=== PATIENT | female | born 1955 | race Caucasian/White ===

== ENCOUNTER → 2024-02-16 09:25 | Outpatient (REF) | payer MEDICARE, OTHER, SELFPAY ==
[2024-02-16 12:26] LABS: % Eosinophils 8.1 % (0-6); % Immature Granulocytes 0.3 % (0-0.5); % Lymphocytes 34.1 % (20.5-51.1); % Monocytes 10.5 % (1.7-9.3); Absolute Basophils 0.1 10^3/uL (0-0.2); Absolute Eosinophils 0.6 10^3/uL (0-0.7); Absolute Lymphocytes 2.6 10^3/uL (1.2-3.4); Absolute Monocytes 0.8 10^3/uL (0.1-0.6); Absolute Neutrophils 3.6 10^3/uL (1.4-6.5); Hematocrit 32.1 % (37.0-47.0); Hemoglobin 11.6 g/dL (12.0-16.0); Mean Corp Hgb Conc. 36.1 g/dL (33.0-37.0); Mean Corpuscular Hgb 31.6 pg (27.0-31.0); Mean Corpuscular Volume 87.5 fL (81.0-99.0); Mean Platelet Volume 9.5 fL (7.4-10.4); Nucleated Red Blood Cells % 0 %; Platelet Count 449 10^3/uL (130-400); Red Blood Cell Count 3.67 10^6/uL (4.20-5.40); Red Cell Dist. Width 13.2 % (11.5-14.5); White Blood Cell Count 7.8 10^3/uL (4.8-10.8)
[2024-02-16 13:00] LABS: ALT (SGPT) 24 U/L (0-35); AST (SGOT) 24 U/L (14-36); Albumin 4.7 g/dl (3.5-5.0); Alkaline Phosphatase 44 U/L (38-126); Blood Urea Nitrogen 27 mg/dl (7-17); Calcium 9.9 mg/dl (8.4-10.2); Carbon Dioxide 27 mmol/L (22-30); Chloride 105 mmol/L (98-107); Glucose 107 mg/dl (70-99); HDL Cholesterol 56 mg/dl; LDL Cholesterol, Calculated 89 mg/dl; Potassium 4.3 mmol/L (3.5-5.1); Sodium 140 mmol/L (135-145); Total Bilirubin 0.6 mg/dl (0.2-1.3); Total Cholesterol 167 mg/dl (50-199); Total Protein 7.7 g/dl (6.3-8.2); Triglyceride 113 mg/dl (10-149); Very Low Density Lipoprotein 22 mg/dl (0-30); eGFR > 60.00
[2024-02-16 13:19] LABS: Vitamin D, 25-OH*** 55.5 ng/mL (30-80)
[2024-02-16 14:06] LABS: Glycohemoglobin (HgbA1c) 5.7 % (4.0-5.6)
[2024-02-16 15:47] LABS: Total Thyroxine 4.65 ug/dl (5.5-11.0)
[2024-02-19 01:24] LABS: Total T3 (Sendout) 80 ng/dL (80-200)
== END ==
LOC: HWLAB 09:25
PROVIDERS: ATTENDING PHYSICIAN Surgery; FAMILY PHYSICIAN Family Medicine
DX: E05.90 Thyrotoxicosis, unspecified without thyrotoxic crisis or storm (principal); Z00.00 Encounter for general adult medical examination without abnormal findings; R73.01 Impaired fasting glucose; E78.2 Mixed hyperlipidemia; M85.89 Other specified disorders of bone density and structure, multiple sites; I10 Essential (primary) hypertension
CPT/HCPCS: 36415; 80053; 80061; 82306; 83036; 84436; 84443; 84480; 85025

== ENCOUNTER → 2024-03-22 09:26 | Outpatient (REF) | payer MEDICARE, OTHER, SELFPAY ==
[2024-03-22 14:17] LABS: Total Thyroxine 7.72 ug/dl (5.5-11.0)
[2024-03-22 14:31] LABS: TSH 5.08 uIU/ml (0.47-4.68)
[2024-03-24 22:32] LABS: Total T3 (Sendout) 99 ng/dL (80-200)
== END ==
LOC: HWLAB 09:26
PROVIDERS: ATTENDING PHYSICIAN Surgery; FAMILY PHYSICIAN Family Medicine
DX: E04.1 Nontoxic single thyroid nodule (principal)
CPT/HCPCS: 36415; 84436; 84443; 84480

== ENCOUNTER → 2024-11-02 09:30 | Outpatient (REF) | payer MEDICARE, OTHER, SELFPAY | LOC: HWWDC 09:30 | PROVIDERS: ATTENDING PHYSICIAN Obstetrics & Gynecology; FAMILY PHYSICIAN Family Medicine | DX: Z78.0 Asymptomatic menopausal state (principal); Z12.31 Encounter for screening mammogram for malignant neoplasm of breast | CPT/HCPCS: 77063; 77067; 77080 ==

== ENCOUNTER → 2024-12-04 08:45 | Outpatient (REF) | payer MEDICARE, OTHER, SELFPAY | LOC: MRI 3T 08:45 | PROVIDERS: ATTENDING PHYSICIAN Emergency Medicine | DX: I77.6 Arteritis, unspecified (principal) | CPT/HCPCS: 70544 ==

== ENCOUNTER 2024-12-08 07:46 | Day surgery (SDC) | payer MEDICARE, OTHER, SELFPAY ==
[2024-12-08] VITALS (9 sets, daily range): BP systolic 103–130; BP diastolic 65–75; BMI 28.2
[2024-12-08 08:37] LABS: Hematocrit 39.7 % (37.0-47.0); Hemoglobin 13.5 g/dL (12.0-16.0); Mean Corpuscular Hgb 32.4 pg (27.0-31.0); Mean Corpuscular Volume 95.2 fL (81.0-99.0); Mean Platelet Volume 8.8 fL (7.4-10.4); Platelet Count 396 10^3/uL (130-400); Red Blood Cell Count 4.17 10^6/uL (4.20-5.40); Red Cell Dist. Width 14.4 % (11.5-14.5)
[2024-12-08] MEDS: BACTROBAN NASAL 1 GRAM NASAL (08:43)
[2024-12-08] MEDS: PERIDEX 0.12% ORAL RINSE 15 ML PO (08:43)
[2024-12-08] MEDS: NSS 500 IV (08:44)
[2024-12-08 08:45] LABS: INR 0.89; PT 12.4 Sec (11.4-14.6)
[2024-12-08 08:46] LABS: APTT 25.4 Sec (23.4-35.0)
--- NOTE | 2024-12-08 08:50 | W.SUR.PREOP ---
Pre-Operative Surgical Note
-
I have examined this patient prior to the performance of the scheduled procedure.
The patient's condition is unchanged from the time of the current History and
Physical and the patient is able to undergo the scheduled procedure.
--- NOTE | 2024-12-08 08:57 | OR.RPT ---
Addendum entered and electronically signed by Kyle Pereyra MD 12/08/24 09:40:
BELOW NOTE ENTERED ERRONEOUSLY. THE BELOW NOTE IS NOT FOR THIS PATIENT. WRONG ENTRY.
Original Note:
Operative Report
Operative Report
PROCEDURE DATE: 12/08/2024
Preoperative diagnosis: Debilitating left lower extremity claudication, possible early rest pain.
Postoperative diagnosis: Same
Procedure:
1. Duplex assisted right common femoral artery cannulation.
2. Aortogram and pelvic angiogram.
3. Left lower extremity arteriogram with third order vessel catheterization of left popliteal artery via right common femoral artery puncture.
4. Balloon angioplasty and stent placement left distal superficial femoral artery with AppLovin Zilver PTX 6 mm x 80 mm drug-eluting stent.
5. Right femoral angiogram.
6. Supervision and interpretation.
Surgeon: Roddy
Mds Nurse: None
Complications: None
Anesthesia: Local, sedation
Fluoroscopy:
8.0 min
30 mGy
5.94 Gy.cm2
Indications for procedure:
Debilitating left calf claudication with potential early ischemic rest pain type symptoms. Risk/benefits/alternatives of angiography were discussed. Patient understood all wished to proceed.
Description of procedure:
Patient was identified, brought to the operating room. Placed on the table in the supine position. After the adequate administration of anesthesia, the patient was prepped and draped in the standard surgical fashion. A standard preoperative
timeout was undertaken and everybody was in agreement with the plan.
The right common femoral artery was accessed with a micropuncture kit under direct duplex ultrasound guidance. A 5 American sheath was then advanced over a 0.035 inch wire, and a garcia's hook catheter was advanced into the abdominal aorta.
Aortogram and pelvic angiogram was obtained. Findings as follows:
The infrarenal abdominal aorta and bilateral common and external iliac arteries were patent with severe eccentric calcified plaque diffusely, but no hemodynamically significant stenosis
Using a floppy angled hydrophilic wire, the left common femoral artery was cannulated and the catheter was advanced. Left lower extremity arteriogram was obtained. Findings as follows:
Common femoral artery: Patent with luminal irregularities and mild to moderate calcified plaque, but no significant stenosis.
Profunda femoris artery: Patent with no significant stenosis.
Superficial femoral artery: Moderate eccentric calcified plaque, at the origin there was a opacified plaque, but did not appear to result in significant flow limitation. Luminal irregularities throughout the SFA with mild stenosis in the
midsegment. Then at the distal SFA there was a focal area of severe stenosis with luminal irregularity. No occlusion noted.
Popliteal artery: Patent with mild luminal irregularities but no significant stenosis.
Anterior tibial artery: Patent for approximately 2 cm and then occluded.
Tibial peroneal trunk: Patent with luminal irregularity mild noted. At the bifurcation of the tibioperoneal trunk there is a mild stenosis.
Peroneal artery: Patent with no significant stenosis in the proximal 4 to 5 cm. Beyond here the artery became diffusely small with luminal irregularities, appeared to be chronically calcified. Collateralization at the level of the ankle with Y
collaterals, but relatively poor filling into the foot.
Posterior tibial artery: Patent with diffuse diminutive stature, but no focal stenosis identified. Patent flow through to the ankle. The plantar's did not feel well due to small vessel disease. There was plaque noted throughout the posterior
tibial artery.
At this point, I selectively cannulated the superficial femoral artery and then exchanged for a Storq wire and an up and over 6 American sheath. The patient was given 5000 units of intravenous heparin. Using floppy angled hydrophilic wire and a CXI
catheter under roadmap assisted guidance I was able to traverse through the area of severe distal SFA stenosis, and then advance my catheter and exchanged for a Storq wire. Next I electively stented that segment using a 6 mm x 80 mm Zilver PTX
(AppLovin) drug coated self-expanding stent. This was post angioplastied with a 5 mm balloon. Completion angiogram demonstrated excellent result. There was some wire hold-up that I kept noting in the above-knee popliteal artery. Therefore I
performed a magnified image and it demonstrated no significant stenosis. Using a floppy wire and a CXI catheter I was able to easily traverse the area and passed the catheter without difficulty. Therefore I felt there was no significant stenosis.
At this point over the Storq wire I withdrew my sheath to the right distal external iliac artery. Right femoral angiogram demonstrated good puncture in the right common femoral artery. There was moderate right common femoral artery calcified
plaque with likely mild to moderate stenosis, but the origin of the SFA and proximal SFA had a heavy bulky calcified plaque and stenosis. At this point, the wires and catheters were withdrawn after exchanging for a short 6 American sheath. The
patient will be transferred to the recovery room in stable condition where the sheath will be withdrawn. Protamine was given reverse the heparin. Upon completion the patient had a palpable left popliteal pulse.
The patient tolerated procedure well.
[2024-12-08 09:12] LABS: Blood Urea Nitrogen 21 mg/dl (7-17); Calcium 9.4 mg/dl (8.4-10.2); Carbon Dioxide 24 mmol/L (22-30); Chloride 106 mmol/L (98-107); Estimated Creatinine Clearance 54 ml/min; Glucose 82 mg/dl (70-99); Potassium 4.4 mmol/L (3.5-5.1); Sodium 141 mmol/L (135-145); eGFR > 60.00
--- NOTE | 2024-12-08 10:22 | W.SUR.POST ---
Surgical Immediate Post Op
Note
Pre Op Diagnosis: Temporal arteritis
Post Op Diagnosis: Same
Procedure Performed: Bilateral temporal artery biopsy
Primary Surgeon: Roddy
Assist: Arias GARNICA
Anesthesia: Local and sedation
Estimated Blood Loss: 2 cc
Fluids: See anesthesia flowsheet
Drains/Shunts: None
Specimens/Cultures: Temporal arteries
Doppler/Duplex/Angio (Y/N): Yes
Complications: None
Operative Findings: Successful biopsies
--- NOTE | 2024-12-08 10:47 | OR.RPT ---
Operative Report
Operative Report
PROCEDURE DATE: 12/08/2024
Preoperative diagnosis: Temporal arteritis
Postoperative diagnosis: Same
Procedure: Bilateral superficial temporal artery biopsy.
Surgeon: Roddy
Supervising Architect: Arias, required for all aspects of procedure including assistance with traction/count traction, assistance with closure.
Complications: None
Anesthesia: Local, sedation
Indications for procedure:
Concern for temporal arteritis. Bilateral headaches in the temporal region. Referred by her primary care team for temporal artery biopsy given their concern for the diagnosis. Risk/benefits/alternatives of temporal artery biopsy were discussed.
Patient understood all wished to proceed.
Description of procedure:
Patient was identified brought to the operating room placed on the table in supine position. After the adequate administration of anesthesia and perioperative antibiotics she was prepped and draped in the standard surgical fashion. A standard
preoperative timeout was undertaken and everybody was in agreement the plan. A longitudinal incision was made in the scalp just anterior and superior to the superiormost aspect of the pinna of the right ear (overlying the palpable pulsation of the
artery) after infiltration of the skin and subcutaneous tissue with 1% lidocaine. This was carried down through the subcutaneous layer and the fascia layer with electrocautery. The superficial temporal artery was identified. It was mobilized
using sharp dissection. It was then ligated proximally and distally as well as a branch ligated all with a clip. I then transected the artery. This was then sent for specimen.
A similar incision was made in the left scalp just anterior and superior to the superiormost aspect of the pinna of the left ear (overlying the palpable pulsation of the artery) after infiltration of the skin and subcutaneous tissue with 1%
lidocaine. Similarly this was carried down through the subcutaneous tissue and fascial layer with the electrocautery. The superficial temporal artery was identified and was mobilized using sharp dissection. It was then ligated proximally and
distally as well as a branch ligated with a clip. I then transected the artery. This was then sent for specimen.
Both incision sites were then irrigated. Hemostasis was achieved and confirmed. We then closed in layers using 3-0 Vicryl deep dermal layer followed by 4-0 Monocryl subcuticular running layer (this was completed bilaterally). Dermabond was then
applied bilaterally. Patient tolerated procedure well.
== END 2024-12-08 11:30 | disposition home or self-care (01) ==
LOC: CATH 07:46
PROVIDERS: ATTENDING PHYSICIAN Surgery Vascular Surgery; FAMILY PHYSICIAN Family Medicine; OTHER PHYSICIAN Internal Medicine Cardiovascular Disease
DX: R51.9 Headache, unspecified (principal); I10 Essential (primary) hypertension; E78.5 Hyperlipidemia, unspecified; K21.9 Gastro-esophageal reflux disease without esophagitis; Z87.891 Personal history of nicotine dependence
CPT/HCPCS: 37609; 88305; 80048; 85027; 85610; 85730; 86850; 86900; 86901; 88313; 93005

== ENCOUNTER → 2025-07-20 06:55 | Outpatient (REF) | payer MEDICARE, OTHER, SELFPAY | LOC: HWRAD 06:55 | PROVIDERS: ATTENDING PHYSICIAN Internal Medicine Hematology & Oncology; FAMILY PHYSICIAN Family Medicine | DX: D72.828 Other elevated white blood cell count (principal) | CPT/HCPCS: 76705 ==

== ENCOUNTER → 2025-09-05 08:30 | Outpatient (REF) | payer MEDICARE, OTHER, SELFPAY | LOC: RCS 08:30 | PROVIDERS: ATTENDING PHYSICIAN Internal Medicine Cardiovascular Disease; FAMILY PHYSICIAN Family Medicine | DX: R06.02 Shortness of breath (principal); I25.10 Atherosclerotic heart disease of native coronary artery without angina pectoris; R07.89 Other chest pain | CPT/HCPCS: 93017; 93350 ==

== ENCOUNTER 2025-09-06 06:24 | Day surgery (SDC) | payer MEDICARE, OTHER, SELFPAY | END 2025-09-06 13:38 | disposition home or self-care (01) | LOC: GI 06:24 | PROVIDERS: ATTENDING PHYSICIAN Internal Medicine; FAMILY PHYSICIAN Family Medicine | DX: R13.10 Dysphagia, unspecified (principal); K22.4 Dyskinesia of esophagus; K44.9 Diaphragmatic hernia without obstruction or gangrene; K29.60 Other gastritis without bleeding; Q40.2 Other specified congenital malformations of stomach; K31.89 Other diseases of stomach and duodenum; K20.90 Esophagitis, unspecified without bleeding; K31.A19 Gastric intestinal metaplasia without dysplasia, unspecified site | CPT/HCPCS: 43239; 88305; 88342 ==

== ENCOUNTER → 2025-09-14 14:18 | Outpatient (REF) | payer MEDICARE, OTHER, SELFPAY | LOC: HWRAD 14:18 | PROVIDERS: ATTENDING PHYSICIAN Specialist; FAMILY PHYSICIAN Family Medicine | DX: N20.0 Calculus of kidney (principal) | CPT/HCPCS: 74176 ==

== ENCOUNTER → 2025-11-11 06:19 | Day surgery (SDC) | payer MEDICARE, OTHER, SELFPAY ==
[2025-11-11 09:35] VITALS: BP 130/75; BMI 27.4
[2025-11-11] MEDS: NORMOSOL-R/PLASMALYTE-A 1000 IV (10:07)
[2025-11-11 11:27] VITALS: BP 121/76
[2025-11-11 11:30] VITALS: BP 129/84; BP 130/75
[2025-11-11 11:45] VITALS: BP 142/72
[2025-11-11 12:00] VITALS: BP 130/79
[2025-11-11] MEDS: DETROL LA 4 MG PO (12:02)
[2025-11-11 12:15] VITALS: BP 141/81
== END ==
LOC: SDS 06:19
PROVIDERS: ATTENDING PHYSICIAN Specialist
DX: N20.0 Calculus of kidney (principal)
CPT/HCPCS: 52356; 74018; 76000; 82365; 87086